=== PATIENT | male | born 1960 | race Caucasian/White ===

== ENCOUNTER 2024-02-17 08:50 | Emergency (ER) | payer OTHER ==
[~2024-02-17] VITALS: Ht 177.8 cm; Wt 58.6 kg
[~2024-02-17 08:50] MED LIST: AZITHROMYCIN250 MG PO; NORCO 5-325 TA1 EACH PO; PREDNISONE20 MG PO; PROVENTIL HFA6.7 GM INH
--- OUTSIDE RECORDS SUMMARY | 2024-02-17 08:52 | XMS ---
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 E.DDaniel VISIT COUNT (12 MO.) [address] [place] [address] 1 [facility] TOTAL 3 NOTE: Visits indicate total known visits. ED/UCC VISIT TRACKING (12 MO.) 02/17/2024 08:51 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 01/01/2024 00:18 [facility] TYPE: Emergency DIAGNOSES: - Displaced fracture of triquetrum [cuneiform] bone, right wrist, initial encounter for open fracture - Amputation INPATIENT VISIT TRACKING (12 MO.) 01/01/2024 05:01 [facility] TYPE: Orthopedic DIAGNOSES: - Crushing injury of right hand, initial encounter - Crushing injury of right shoulder and upper arm, initial encounter - Crushing injury of right shoulder and upper arm, subsequent encounter - Laceration without foreign body of right hand, initial encounter - Traumatic compartment syndrome of right upper extremity, initial encounter - [facility] - Hand Injury - 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
[2024-02-17] MEDS ORDERED: BACTRIM DS TAB1 EACH PO (10:14)
[2024-02-17] MEDS ORDERED: CLINDAMYCIN HC150 MG PO (10:14)
[2024-02-17 10:36] VITALS: BP 143/67
== END 2024-02-17 10:24 | disposition home or self-care (01) ==
LOC: ED 08:50
DX: T81.49XA Infection following a procedure, other surgical site, initial encounter (principal); L08.9 Local infection of the skin and subcutaneous tissue, unspecified; F17.200 Nicotine dependence, unspecified, uncomplicated
CPT/HCPCS: 99283